=== PATIENT | male | born 1955 | race Caucasian/White ===

== ENCOUNTER 2023-07-17 15:32 | Inpatient (IN) ==
[2023-07-17] MEDS ORDERED: Heparin - STEMI 5,000 UNITS/ML 1 ml VIAL IV ONE ×2 (15:36→15:40)
[2023-07-17] MEDS ORDERED: Ondansetron 4 mg VIAL 2 MG/ML 2 ml VIAL IV ONE (15:40)
[2023-07-17] MEDS ORDERED: NS 0.9% 1000 ml BAG 1,000 ML IV ONE (15:40)
[2023-07-17 15:52] LABS: ABS Basophils 0.1 10^3/uL (0.0-0.1); ABS Eosinophils 0.1 10^3/uL (0.0-0.5); ABS Lymphocytes 2.4 10^3/uL (1.0-4.8); ABS Monocytes 1.1 10^3/uL (0.0-1.1); ABS Neutrophils 7.3 10^3/uL (1.5-7.6); Eosinophil % 0.5 %; Hematocrit 32.1 % (38-53); Hemoglobin 10.9 g/dL (13.2-16.3); Mean Corpuscular Hemoglobin 28.1 pg (27-33); Mean Corpuscular Hgb Conc 33.8 g/dL (31-36); Mean Platelet Volume 8.1 fL (7.5-11.2); Platelet Count 243 10^3/uL (150-450); Red Blood Count 3.86 10^6/uL (4.06-5.63); Red Cell Distribution Width 14.7 % (12-17)
[2023-07-17] MEDS ORDERED: Midazolam 5 mg/5 ml VIAL 1 mg/ml 5 ml VIAL (5 mg) ONE (16:04)
[2023-07-17] MEDS ORDERED: fentaNYL 100 mcg/2 ml 50 MCG/ML VIAL ONE (16:04)
[2023-07-17] MEDS ORDERED: Heparin 2 UNITS/ML 1000 mls 3,000 ML IV ONE (16:04)
[2023-07-17] MEDS ORDERED: VERAPAMIL 2.5 MG/ML 2 ML VIAL ** 5 mg/2 ml ONE (16:04)
[2023-07-17] MEDS ORDERED: Iohexol 350 (CONTRAST) 200 ML MDV IV ONE ×2 (16:04→16:32)
[2023-07-17] MEDS ORDERED: nitroGLYCERIN DRIP 25,000 MCG/250 ML BTL ONE (16:04)
[2023-07-17] MEDS ORDERED: Heparin 1,000 UNIT/ML 10 ml (10,000 UNITS) CATHLAB/DIALYSIS ONE (16:04)
[2023-07-17] MEDS ORDERED: Lidocaine 1% MPF 5 ML VIAL ONE (16:04)
[2023-07-17 16:06] LABS: Albumin/Globulin Ratio 1.6 (1-3); Calcium 8.8 mg/dL (8.6-10.3); Creatinine, Serum 1.41 mg/dL (0.67-1.17); Globulin 2.5 g/dL (2-4); Magnesium 2.2 mg/dL (1.9-2.7); Potassium 3.6 mmol/L (3.5-5.0); Total Bilirubin 0.4 mg/dL (0.2-1.0); Total Protein 6.5 g/dL (6.4-8.9); eGFR CKD-EPI 54.3 (>60)
[2023-07-17 16:16] LABS: Activated Partial Thrombo Time 29.4 seconds (26.0-38.0); INR 1.03 (0.83-1.13)
[2023-07-17] MEDS ORDERED: Atropine 0.1 MG/ML 10 ml SYR (1 mg) ONE (16:29)
[2023-07-17] MEDS ORDERED: Bivalirudin 250 MG VIAL ONE (16:36)
[2023-07-17] MEDS ORDERED: Eptifibatide IV (Load dose) 2 MG/ML 10 ml VIAL ONE ×2 (16:45→16:55)
[2023-07-17] MEDS ORDERED: NS 0.9% 1000 ml BAG 1,000 ML IV SCH (18:30)
[2023-07-18 04:20] LABS: ABS Eosinophils 0.2 10^3/uL (0.0-0.5); ABS Lymphocytes 1.3 10^3/uL (1.0-4.8); ABS Nucleated RBC 0.01 10^3/ul; Eosinophil % 2.3 %; Hematocrit 29.7 % (38-53); Hemoglobin 10.5 g/dL (13.2-16.3); Lymphocyte % 17.3 %; Mean Corpuscular Hemoglobin 29.1 pg (27-33); Mean Corpuscular Hgb Conc 35.3 g/dL (31-36); Mean Corpuscular Volume 82.4 fL (80-97); Nucleated Red Blood Cells % 0.1 %/100WBC (0.0-0.8); Platelet Count 209 10^3/uL (150-450); Red Blood Count 3.61 10^6/uL (4.06-5.63); Red Cell Distribution Width 14.9 % (12-17); White Blood Count 7.5 10^3/uL (3.6-10.2)
[2023-07-18 04:39] LABS: Albumin 3.6 g/dL (3.2-5.2); Albumin/Globulin Ratio 1.5 (1-3); Calcium 8.4 mg/dL (8.6-10.3); Creatinine, Serum 1.18 mg/dL (0.67-1.17); Globulin 2.4 g/dL (2-4); HDL Cholesterol 48.1 mg/dL; Magnesium 2.2 mg/dL (1.9-2.7); Potassium 3.9 mmol/L (3.5-5.0); Total Bilirubin 0.4 mg/dL (0.2-1.0); eGFR CKD-EPI 67.2 (>60)
[2023-07-19 04:31] LABS: ABS Basophils 0.1 10^3/uL (0.0-0.1); ABS Eosinophils 0.3 10^3/uL (0.0-0.5); ABS Lymphocytes 1.6 10^3/uL (1.0-4.8); ABS Monocytes 0.9 10^3/uL (0.0-1.1); ABS Neutrophils 3.8 10^3/uL (1.5-7.6); Eosinophil % 3.8 %; Hematocrit 31.8 % (38-53); Lymphocyte % 23.7 %; Mean Corpuscular Hemoglobin 28.8 pg (27-33); Mean Corpuscular Hgb Conc 34.4 g/dL (31-36); Mean Corpuscular Volume 83.6 fL (80-97); Mean Platelet Volume 8.2 fL (7.5-11.2); Nucleated Red Blood Cells % 0.1 %/100WBC (0.0-0.8); Platelet Count 210 10^3/uL (150-450); Red Blood Count 3.81 10^6/uL (4.06-5.63); Red Cell Distribution Width 14.8 % (12-17); White Blood Count 6.6 10^3/uL (3.6-10.2)
[2023-07-19 04:55] LABS: Albumin 3.7 g/dL (3.2-5.2); Albumin/Globulin Ratio 1.4 (1-3); Calcium 8.9 mg/dL (8.6-10.3); Creatinine, Serum 1.27 mg/dL (0.67-1.17); Globulin 2.6 g/dL (2-4); Potassium 4.1 mmol/L (3.5-5.0); Total Bilirubin 0.5 mg/dL (0.2-1.0); Total Protein 6.3 g/dL (6.4-8.9); eGFR CKD-EPI 61.5 (>60)
[2023-07-19 12:52] VITALS: BP 120/74
== END 2023-07-19 13:00 | disposition home or self-care (01) | DRG 251 ==
LOC: ED 15:32 → CHICATH 15:58 → SUATTDRO 18:25 → ICU 18:25
PROVIDERS: ATTEND Internal Medicine Critical Care Medicine